=== PATIENT | male | born 1955 | race Caucasian/White ===

== ENCOUNTER 2018-01-31 15:35 | Emergency (ER) | payer OTHER, MEDICARE ==
[2018-01-31 15:35] VITALS: BMI 31.7
[2018-01-31 16:19] VITALS: TEMP 98.3
[2018-01-31 18:22] VITALS: BP 115/69; PULSE 69; RESP 18; O2SAT 98
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
--- NOTE | 2018-02-01 09:21 | RAD ---
Date of service: 01/31/2018 HISTORY: r/o fx COMPARISON: No prior. FINDINGS: BONES: Alignment maintained. No fracture. Generalized osteopenia Mid to distal thoracic spondylosis. DISC SPACES: Normal. SOFT TISSUES: Normal. OTHER FINDINGS: Right upper quadrant cholecystectomy clips Overall interstitial and bronchovascular markings appear diffusely slightly prominent on this exam. Correlate clinically IMPRESSION: Mid to distal thoracic spondylosis. No fracture or subluxation appreciated. Other findings as above.
== END 2018-01-31 18:44 | disposition home or self-care (01) ==
LOC: C.ER 15:35
DX: S29.012A Strain of muscle and tendon of back wall of thorax, initial encounter (principal); V89.2XXA Person injured in unspecified motor-vehicle accident, traffic, initial encounter; Y92.410 Unspecified street and highway as the place of occurrence of the external cause